=== PATIENT | male | born 1950 | race Caucasian/White ===

== ENCOUNTER 2016-09-27 12:33 | Emergency (ER) | payer OTHER ==
[~2016-09-27 12:33] MED LIST: ADULT LOW DOSE81 MG PO; AZITHROMYCIN 250MG PO; CARVEDILOL12.5 MG PO; DIABETA 5MG5 MG/TAB PO; GLUCOPHAGE PO; GOOD NEIGHBOR200 M1 PO; LASIX20 M1 PO; LISINOPRIL5 MG PO; NITROSTAT0.4 M1 SL; SIMVASTATIN20 M1 PO
[2016-09-27] MEDS ORDERED: TUSS PO (13:46)
== END 2016-09-27 14:00 | disposition home or self-care (01) ==
LOC: ED 12:33
DX: J10.1 Influenza due to other identified influenza virus with other respiratory manifestations (principal); E86.0 Dehydration; E87.5 Hyperkalemia; Z87.891 Personal history of nicotine dependence

== ENCOUNTER → 2019-04-08 | Outpatient (CLI) | payer MEDICARE, OTHER ==
[2016-09-27 13:58] VITALS: BP 117/67
[~2019-04-08] MED LIST changes: +TUSS PO
== END ==
LOC: RAD 09:05
DX: S22.32XA Fracture of one rib, left side, initial encounter for closed fracture (principal); J43.9 Emphysema, unspecified; J90 Pleural effusion, not elsewhere classified; J98.11 Atelectasis
CPT/HCPCS: Q9967

== ENCOUNTER → 2024-11-01 | Outpatient (CLI) | payer MEDICARE, OTHER | LOC: RAD 10:53 | DX: Z13.6 Encounter for screening for cardiovascular disorders (principal); Z87.891 Personal history of nicotine dependence ==